=== PATIENT | female | born 1940 | race Two or more races ===

== ENCOUNTER 2024-07-29 10:27 | Emergency (ER) | payer MEDICARE, MEDICAID ==
[~2024-07-29] VITALS: Ht 160 cm; Wt 86.0 kg
[2024-07-29 11:33] VITALS: BP 146/76; PULSE 86; RESP 16; TEMP 98.6; O2SAT 96
--- NOTE | 2024-07-29 15:36 | DVH ---
EXAM: XY L HAND 3V XRAY CLINICAL INDICATION: crushed injury to distal phalanx TECHNIQUE: XY L HAND 3V XRAY Comparison: None FINDINGS/IMPRESSION: There is no evidence of acute fracture or dislocation. The visualized joint space is well maintained. The alignment is anatomical. There is no radiopaque foreign body.
--- NOTE | 2024-07-29 16:03 | ED.PDOC ---
Musculoskeletal HPI Comments This is a pleasant 84-year-old female who presents with a chief complaint of a possible fracture to the left hand specifically located at the distal middle phalanx and distal ring finger. Accident occurred yesterday at 9:00 a.m. after her hand got crushed in between a car door. Denies numbness tingling to the affected hand but complains of pain with flexion. Pain is rated as moderate. [employer] Supervisor used: [id number] Chief Complaint: Upper Extremity Time Seen by MD: 10:34 Reviewed Notes: Nurses Notes, Medications, Allergies Allergies: Coded Allergies: NO KNOWN ALLERGIES (Unverified , 07/29/24) Information Source: Patient Mode of Arrival: Ambulatory Past Medical History PAST MEDICAL HISTORY: Denies Surgical History: Denies all surgeries Family History Family History: Reviewed,noncontributory to illness Social History Smoker: Non-Smoker Alcohol: Denies ETOH Use Drugs: Denies Drug Use All Other Systems: Reviewed and Negative (Per HPI) Physical Exam General Appearance: No Apparent Distress, Normal HEENT: Normal ENT Inspection, Pharynx Normal, TMs Normal Neck: Full Range of Motion, Non-Tender, Normal, Normal Inspection Respiratory: Chest Non-Tender, Lungs Clear, No Accessory Muscle Use, No Respiratory Distress, Normal Breath Sounds Cardiovascular: No Edema, No JVD, No Murmur, No Gallop, Normal Peripheral Pulses, Regular Rate/Rhythm Breast Exam: Deferred Gastrointestinal: No Organomegaly, Non Tender, No Pulsatile Mass, Normal Bowel Sounds, Soft Genitalia: Deferred Pelvic: Deferred Rectal: Deferred Extremities: No calf tenderness, Normal capillary refill, Normal inspection, Normal range of motion, Non-tender, No pedal edema Musculoskeletal : Apperance: Normal Neurologic: Alert, marbleizer II-XII nml as Tested, No Motor Deficits, Normal Affect, Normal Mood, No Sensory Deficits Cerebellar Function: Normal Reflexes: Normal Skin: Dry, Normal Color, Warm Lymphatic: No Adenopathy Was a procedure done? Was a procedure done?: Yes Sedation Sedation?: No Other Procedure Procedure Trephination d/t less than 48 hours Cleanse with povidone-iodine solution (not flammable alcohol) Handheld cautery Success y Informed consent obtained: Yes Risks, benefits, and alternati: Yes Differential Diagnosis EXT Differential Diagnosis: Fracture, Sprain, Dislocation X-Ray, Labs, Meds, VS Vital Signs Date Time Temp Pulse Resp B/P (MAP) Pulse Ox O2 Delivery O2 Flow Rate FiO2 07/29/24 11:33 86 16 96 Room Air 07/29/24 11:33 98.6 86 16 146/76 (99) 96 98.6 07/29/24 11:12 98.9 82 19 150/75 (100) 96 98.9 PATIENT: ROLANDA RUDDCCT: [id number]: [id number] : 1940 LOC: ER ROOM / BED: / AGE / SEX: 84 / F ADM STATUS: REG ER SERVICE 1235 ORDERING PHYSICIAN: JOCELYNN KILPATRICK NP PROCEDURE(s): LHAN - L HAND 3V XRAY REASON: crushed injury to distal phalanx ORDER NUMBER(s): [id number], ACCESSION NUMBER(s): [id number] EXAM: XY L HAND 3V XRAY CLINICAL INDICATION: crushed injury to distal phalanx TECHNIQUE: XY L HAND 3V XRAY Comparison: None FINDINGS/IMPRESSION: There is no evidence of acute fracture or dislocation. The visualized joint space is well maintained. The alignment is anatomical. There is no radiopaque foreign body. ATED BY: SAMY RESENDIZ MD DICTATED DATE/TIME: 07/29/241534 SIGNED BY: SAMY RESENDIZ MD SIGNED DATE/TIME: 07/29/241534 CC: X-Ray, Labs, Meds, VS Comment Presentation most consistent with simple Subungual Hematoma post injury within last 48 hours. No overt evidence of Flexor or Extensor tendon dysfunction, Compartment syndrome, Arterial or Nerve injury. Interventions: Trephination. Defer splinting given no fracture on XR. Rx: Patient instructed to soak affected nail in warm water two to three times daily for the next week. Disposition: Discharge home with strict return precautions and advice to follow up with primary care doctor in next 24-48 hours for further evaluation. Time of 1ST Reevaluation: 15:48 Reevaluation 1ST: Improved Time of 2ND Reevaluation: 15:52 Patient Education/Counseling: Diagnosis, Treatment Family Education/Counseling: Diagnosis, Treatment Departure 1 Departure Time of Disposition: 16:02 Impression: Primary Impression: Subungual hematoma Disposition: HOME / SELF CARE / HOMELESS Condition: Fair Additional Instructions: Presentation most consistent with simple Subungual Hematoma post injury within last 48 hours. No overt evidence of Flexor or Extensor tendon dysfunction, Compartment syndrome, Arterial or Nerve injury. Interventions: Trephination. Defer splinting given no fracture on XR. Rx: Patient instructed to soak affected nail in warm water two to three times daily for the next week. Disposition: Discharge home with strict return precautions and advice to follow up with primary care doctor in next 24-48 hours for further evaluation. Discharged With: Self Critical Care Note Critical Care Time?: No Stability Stability form required: No Heart Score Heart Score: Heart Score Response (Comments) Value History N/A 0 EKG N/A 0 Age N/A 0 Risk Factors N/A 0 Troponin N/A 0 Total 0 JOCELYNN KILPATRICK NP Jul 29, 2024 16:03
== END 2024-07-29 16:05 | disposition home or self-care (01) ==
LOC: ER 10:27
DX: S60.132A Contusion of left middle finger with damage to nail, initial encounter (principal); S60.142A Contusion of left ring finger with damage to nail, initial encounter; W23.0XXA Caught, crushed, jammed, or pinched between moving objects, initial encounter; Y93.89 Activity, other specified; Y92.89 Other specified places as the place of occurrence of the external cause; Y99.8 Other external cause status
CPT/HCPCS: 11740; 73130